=== PATIENT | female | born 1970 | race Caucasian/White ===

== ENCOUNTER → 2016-07-10 | Outpatient (CLI) | payer BC ==
--- NOTE | 2016-07-11 14:01 | PULMONARY FUNCTION TEST ---
CLINICAL DATA: 45-year-old female with history of asthma sent for PFTs prior to abdominal surgery by Dr. Nate Garcia. Her height is 66 inches and her weight is 153 pounds. Spirometry and lung volumes were performed. FINDINGS: Pre-bronchodilator spirometry is within normal limits. FVC was 101% of predicted. FEV1 was 96% of predicted. [id number] was 83% of predicted. Lung volumes suggest mild to moderate air trapping with residual volume 183% of predicted. Otherwise, they were normal. IMPRESSION: Normal baseline spirometry. Mild to moderate air trapping of lung volumes.
== END | disposition home or self-care (01) ==
LOC: C.RC 12:28
PROVIDERS: ATTEND Student in an Organized Health Care Education/Training Program
DX: M79.9 Soft tissue disorder, unspecified (principal)

== ENCOUNTER → 2017-07-17 | Outpatient (CLI) | payer OTHER ==
[2017-07-17 17:18] LABS: HEP C IGG 13 YRS+OLDER_RFLX NEG (NEG)
== END | disposition home or self-care (01) ==
LOC: C.LAB1850 15:01
PROVIDERS: ATTEND Nurse Practitioner Adult Health
DX: Z77.21 Contact with and (suspected) exposure to potentially hazardous body fluids (principal); W46.1XXA Contact with contaminated hypodermic needle, initial encounter